=== PATIENT | female | born 1935 | race Caucasian/White ===

== ENCOUNTER 2016-11-26 14:48 | Emergency (ER) | payer OTHER ==
[~2016-11-26] VITALS: Ht 154.9 cm; Wt 53.1 kg
--- NOTE | ~2016-11-26 | EKG ---
[address] [place] [address] ELECTROCARDIOGRAM REPORT Name: ADELAIDE DIALLO [facility] [id number] Admission: 11/26/16 Attend Phys: Discharge: 11/26/16 Date of : 31 Report #: [id number] THIS REPORT FOR: //name// [facility] ED Test Date: 2016-11-26 Test Time: 16:05:13 Pat Name: ADELAIDE DIALLO Department: Room: Gender: F [employer]: Ryan ESTRADA RN : [id number] Requested By: Sunil Campa Order Number: [id number] MD: Manjit Gill Measurements Intervals [place] Rate: 66 P: 59 OR: 161 QRS: 36 QRSD: 104 T: 18 QT: 431 QTc: 452 Interpretive Statements Sinus rhythm Nonspecific ST segment abnormality No previous ECG available for comparison Electronically Signed On 11-27-2016 8:59:01 CDT by Manjit Gill [email or web address] <ELECTRONICALLY SIGNED> By: Manjit Gill MD, [facility] 11/27/16 0859 [id number] Manjit Gill MD, FACC /EPI
[~2016-11-26 14:48] MED LIST: 5-HTP100 MG PO; AMBIEN 5 MG TABL5 M1 PO; BIOTIN5 MG PO; LEVOTHYROXIN0.088 MG PO; MELATONIN3 MG PO; PAIN RELIEF500 MG PO; PENTOXIFYLLINE400 MG PO; RED YEAST RICE600 MG PO; SULFAZINE500 MG PO; SUPER B COMPLE150 MG PO; TRAZODONE 150150 M1 PO; UNICOMPLEX M TA1 TA1 PO; XANAX 0.25 MG0.25 MG PO
[2016-11-26] MEDS ORDERED: ARICEPT10 M1 PO (15:08)
[2016-11-26] MEDS ORDERED: SENNA S TABLET1 EACH PO (16:36)
[2016-11-26] MEDS ORDERED: NORCO 5-325 TA1 EACH PO (16:37)
[2016-11-26] MEDS ORDERED: CYCLOBENZAPRINE5 MG PO (16:38)
== END 2016-11-26 16:54 | disposition home or self-care (01) ==
LOC: ER 14:48
DX: S16.1XXA Strain of muscle, fascia and tendon at neck level, initial encounter (principal); S20.211A Contusion of right front wall of thorax, initial encounter; E03.9 Hypothyroidism, unspecified; Z90.89 Acquired absence of other organs; Z90.710 Acquired absence of both cervix and uterus; Z87.891 Personal history of nicotine dependence; V49.9XXA Car occupant (driver) (passenger) injured in unspecified traffic accident, initial encounter; Y93.I9 Activity, other involving external motion; Y92.039 Unspecified place in apartment as the place of occurrence of the external cause; Y99.9 Unspecified external cause status